=== PATIENT | male | born 1960 | race African-American/Black ===

== ENCOUNTER → 2018-02-21 | Outpatient (CLI) | payer BC ==
[~2018-02-21] MED LIST: IOPAMIDOL 370 MG/ML 200 ML INFUS..BTL INJ ONE; SODIUM CHLORIDE 0.9% 50ML 50 ML ONE
--- NOTE | 2018-02-21 17:48 | Diagnostic Imaging Report ---
PROCEDURE: CT scan of the chest WITH intravenous contrast, using standard protocol. TECHNIQUE: The chest was scanned utilizing a multidetector helical scanner from the lung apex through the level of the adrenal glands after the IV administration of 67 cc of Isovue 370. Coronal and sagittal multiplanar reformations were obtained. PE protocol was performed. DLP: 596.76 mGy-cm COMPARISON: None. INDICATIONS: SHORTNESS OF BREATH, DYSPNEA, MUSCLE SWELLING FINDINGS: Lines/tubes: None. Lungs and Airways: No pulmonary emboli to the level of the segmental pulmonary arteries. Low lung volumes. Mosaic attenuation of the lung with more patchy appearance in the posterior costophrenic sulci. Pleura: The pleural spaces are clear. Heart and mediastinum: Mediastinal and hilar lymphadenopathy. Examples include (on series 2, measured in short axis): * Right upper paratracheal 2.1 cm node (image 28) * Lower left paratracheal 2.3 cm node (image 35) * Right hilar 2.3 cm node (image 53) * Left hilar 1.5 cm node (image 53). The thyroid gland is normal. The heart is within normal limits. Small pericardial effusion. Main pulmonary artery measures 3 cm in diameter. Ascending aorta measures 3.4 cm in diameter. Soft tissues: Normal. Abdomen: Limited contrast-enhanced views of the upper abdomen show no abnormality within the visualized liver, spleen, pancreas, or kidneys. The adrenal glands are normal. Bones: The visualized bony thorax is within normal limits. IMPRESSION: 1. No evidence of pulmonary embolism to the level of the segmental pulmonary arteries. 2. Mosaic attenuation of the lungs may reflect small airways disease with air trapping. 3. Patchy appearance of the posterior costophrenic sulci may represent atelectasis or aspiration. 4. Small pericardial effusion. 5. Mediastinal and hilar lymphadenopathy is nonspecific which could reflect a lymphoproliferative process. Reactive nodes remain a consideration but nodes are larger than expected. Metastatic disease not excluded. Dictated by: Jorge Alonzo M.D. on 02/21/2018 at 17:49 Electronically approved by: Jorge Alonzo M.D. on 02/21/2018 at 17:49
== END ==
LOC: CT 16:22
PROVIDERS: ATTEND Internal Medicine Interventional Cardiology
DX: R06.00 Dyspnea, unspecified (principal); I20.9 Angina pectoris, unspecified; I26.99 Other pulmonary embolism without acute cor pulmonale
CPT/HCPCS: 71260; Q9967

== ENCOUNTER → 2018-06-29 | Outpatient (CLI) | payer BC ==
[2018-06-29 15:15] LABS: ANION GAP 16.4 mmol/L (8-16); BLOOD UREA NITROGEN 20 mg/dL (7-26); BUN/CREATININE RATIO 15 (6-25); CALCIUM 9.9 mg/dL (8.4-10.2); CARBON DIOXIDE 24 mmol/L (22-29); CHLORIDE 104 mmol/L (98-107); CREATININE, SERUM 1.35 mg/dL (0.72-1.25); EST GLOMERULAR FILTRATION RATE > 60 ML/MIN (60-); GLUCOSE 118 mg/dL (74-118); POTASSIUM 4.4 mmol/L (3.5-5.1); SODIUM 140 mmol/L (136-145)
--- NOTE | 2018-06-29 16:55 | Diagnostic Imaging Report ---
CT chest with enhancement CPT code: 38540 INDICATION: Lymphadenopathy TECHNIQUE: 5 mm collimation axial images obtained from the thoracic inlet to the level of the diaphragm following uneventful administration of 80 cc of low osmolar, nonionic intravenous contrast. RADIATION DOSE: Total DLP: 634.47 mGy*cm Estimated effective dose: (DLP x 0.015 x size factor) mSv CTDIvol has been reviewed. It is below the limits set by the Radiation Protocol Committee (RPC). Comparison: [facility]A chest 02/21/2018. CHEST FINDINGS: Lymph nodes: There are no enlarged axillary lymph nodes. A prominent right supraclavicular lymph node measures 7 x 16 mm and is stable. Multiple enlarged mediastinal lymph nodes are redemonstrated. A right paratracheal lymph node measures 2.0 x 2.5 cm and is stable. Lymph nodes in the AP window measure up to 2.2 x 1.8 cm and are stable. A lymph node in the right pericardium measures 1.9 x 1.6 cm (previously, 1.8 x 1.5 cm). Subcarinal lymph node measures 2.0 x 2.5 cm and is similar in size. Right and left hilar lymph nodes are enlarged. For example, a right hilar lymph node measures 1.4 x 1.0 cm. A left hilar lymph node measures 2.0 x 2.0 cm. There are subcentimeter calcified lymph nodes in the distal right inferior hilum. There are no enlarged cardiophrenic lymph nodes. Incidental imaging of the submandibular space demonstrates prominent lymph nodes measuring up to 11 mm. Thyroid: Visualized portions are normal. Mediastinum: Pericardial effusion has resolved. The heart is normal in size. No filling defects in the great vessels. The ascending aorta measures 3.5 cm in diameter. The main pulmonary artery measures 2.8 cm in diameter. The esophagus is collapsed. Lungs: Right Lung: Mild reticulation throughout the parenchyma in an apical to basilar gradient. No honeycombing. There is mild cylindrical bronchiectasis in the affected portions. A calcified granuloma in the lower lobe measures 4 mm. No soft tissue mass. Left Lung: Mild reticulation throughout the parenchyma in an apical to basilar gradient. No honeycombing. There is mild cylindrical bronchiectasis in the affected portions. A noncalcified nodule in the upper lobe measures 5 mm and was not visualized on previous exam. A nodule in the lower lobe measures 7 mm and was not visible on previous exam. Airways: Patent. Pleura: No pleural effusion or pleural based mass. ABDOMEN: Visualized portions of the liver, gallbladder, pancreas, and adrenal glands symmetric no evidence of mass. The spleen has rounded contours, but measures 12 cm in maximal length. Visualized portions of the kidneys are unremarkable. No enlarged periaortic lymph nodes. Lymph nodes in the pj hepatis measure up to 16 mm and are nonspecific. Bones: There are mild degenerative changes of the spine. No focal osseous lesions. Soft tissues: Bilateral gynecomastia.. IMPRESSION: 1. Mediastinal and hilar lymphadenopathy is similar. The differential includes sarcoidosis or other granulomatous process, including lymphoma; chronic hypersensitivity pneumonitis, or IPF. Further workup is needed. High resolution CT of the chest is recommended. 2. The spleen is not enlarged, although the contours are rounded suggestive of splenomegaly. Signed by: Dr. Angel Caal MD on 06/29/2018 4:52 PM
== END ==
LOC: CT 14:02
PROVIDERS: ATTEND Internal Medicine Pulmonary Disease
DX: D86.2 Sarcoidosis of lung with sarcoidosis of lymph nodes (principal)
CPT/HCPCS: 36415; 71260; 80048; Q9967